=== PATIENT | male | born 1995 | race Two or more races ===

== ENCOUNTER 2024-11-08 11:32 | Inpatient (IN) | payer OTHER, SELFPAY ==
--- NOTE | 2024-11-08 | ECG_ITS ---
Test Reason : medical clearance Blood Pressure : */* mmHG Vent. Rate : 86 BPM Atrial Rate : 86 BPM P-R Int : 148 ms QRS Dur : 86 ms QT Int : 346 ms P-R-T Axes : 51 57 28 degrees QTcB Int : 414 ms Normal sinus rhythm Normal ECG No previous ECGs available Referred By: Vin Rhodes Electronically Signed By: Dennis Ojeda
--- NOTE | ~2024-11-08 | XR_ITS ---
EXAMINATION: XR FOOT, RIGHT CLINICAL INFORMATION: R fourth toe bruising/pain COMPARISON: None available. TECHNIQUE: AP, lateral, and oblique views of the right foot. FINDINGS: The bones and soft tissues are normal. No fracture. Alignment is anatomic. Joint spaces are maintained. XR/XR foot RT min 3V IMPRESSION: Normal right foot. Electronically signed by: Dakota Campbell MD 11/08/2024 12:31 PM EDT
[2024-11-08 11:41] VITALS: BP 136/89; PULSE 102; O2SAT 99
[2024-11-08 11:52] VITALS: PULSE 75; RESP 18; O2SAT 98; BMI 21.3
--- NOTE | 2024-11-08 11:53 | ED_ITS ---
HPI - General Adult General Chief complaint: Psychiatric Symptoms Stated complaint: Section 12, SI with plan, hx alcohol abuse Time Seen by Provider: 11/08/24 11:53 Source: patient Mode of arrival: ambulatory Limitations: no limitations History of Present Illness ED Provider: [place] Darden PA-C HPI narrative: Patient is a 29 year old assigned male at with a history of alcohol abuse presenting to the emergency department today with suicidal ideation. Patient states that a week ago he stopped taking his medications and he has been feeling suicidal with a plan to slit his wrists and throw himself down / off a mountain. Patient denies any dizziness, lightheadedness, abdominal pain, nausea, vomiting, fever, chills, blurry vision, double vision, loss of vision, chest pain, difficulty breathing, shortness of breath, back pain, night sweats, pain with urination, increased urinary frequency, increased urinary urgency, blood in his urine or stool, syncope or a near syncopal episode, recent trauma or falls, bowel incontinence, bladder incontinence, or any other complaints at this time. Relieving factors: none Exacerbating factors: none Associated symptoms: denies other symptoms Treatments prior to arrival: none Related Data Home Medications ?Medication ?Instructions ?Recorded ?Confirmed divalproex 250 mg tablet,extended 250 mg PO Q12H 11/08/24 11/08/24 release 24 hr gabapentin 300 mg capsule 300 mg PO BID 11/08/24 11/08/24 naltrexone 50 mg tablet 50 - 100 mg PO DAILY 11/08/24 11/08/24 sertraline 25 mg tablet 25 mg PO DAILY 11/08/24 11/08/24 Allergies Allergy/AdvReac Type Severity Reaction Status Date / Time No Known Allergies Allergy Verified 11/08/24 11:54 Review of Systems 2 Constitutional: Constitutional: Reports no additional constitutional complaints, Denies chills, Denies fever(s) and Denies night sweats Eyes: Eyes: Reports no additional eye complaints, Denies blurry vision, Denies change in vision, Denies diplopia, Denies eye discharge, Denies loss of vision and Denies eye pain ENT: Denies dizziness Cardiovascular: Cardiovascular: Reports no additional cardiovascular complaints, Denies chest pain, Denies lightheadedness, Denies Loss of Consciousness and Denies dyspnea Respiratory: Respiratory: Reports no additional respiratory complaints and Denies dyspnea Gastrointestinal: Gastrointestinal: Reports no additional gastrointestinal complaints, Denies abdominal pain, Denies melena, Denies hematochezia, Denies change in bowel habits and Denies change in stool character Genitourinary: Genitourinary: Reports no additional male genitourinary complaints, Denies hematuria, Denies oliguria, Denies difficulty urinating, Denies dysuria, Denies urinary frequency, Denies urinary hesitancy, Denies urinary incontinence and Denies urinary urgency Musculoskeletal: Musculoskeletal: Reports no additional musculoskeletal complaints, Denies numbness and Denies tingling Neurologic: Denies dizziness, Denies loss of vision, Denies numbness and Denies tingling Psychiatric: Psychiatric: Reports depression, Denies homicidal ideation and Reports suicidal ideation Endocrine: Endocrine: Reports no additional endocrine complaints Hematologic/Lymphatic: Hematologic/Lymphatic: Reports no additional hematologic/lymphatic complaints Allergic/Immunologic: Allergic/Immunologic: Reports no additional allergic/immunologic complaints PMFSH Past Medical History Attestation statement: The following information was validated with the patient. Source: old records reviewed and nursing notes reviewed Social History Social History Alcohol intake: current Alcohol intake frequency: 3 or more drinks per day Smoked in Last 30 Days: Yes Use of substances other than those prescribed or required for medical reasons: Yes Substance Use Type: Marijuana Substance Use Frequency: Occasionally Last Used Substance: Days (ago) Any prior treatment program specific to substance use: No Advance Directives: No Advance Directives Information Provided: Yes Physical Exam ED Vital Signs: Vital Signs - 24 hr 11/08/24 20:22 11/09/24 06:19 Temperature 98.8 F 98.5 F Pulse Rate 70 78 Respiratory Rate 18 17 Blood Pressure 133/70 123/73 Pulse Oximetry 99 100 Oxygen Delivery Method Room Air Room Air BMI result Body Mass Index 21.3 Const General: cooperative, no acute distress, alert and awake Nutritional Appearance: well nourished Orientation/consciousness: patient oriented x3 Limitations: no limitations HENMT Head: Yes normal to inspection and Yes atraumatic Ears: hearing grossly normal bilaterally and external ears normal General nose exam: Normal external nose present, no nasal discharge noted and no epistaxis Face and sinus: Yes normal facial exam, No abrasion and No laceration Mouth: Normal oral and palatal mucosa present, no drooling and no muffled voice Eyes General: appearance normal, both eyes and all related structures Periorbital: periorbital findings normal Eyelids: Yes eyelids normal Conjunctivae: conjunctivae normal Pupils: Equal, round and reactive pupils present EOM: EOMs intact bilaterally Neck Neck: Yes normal visual inspection, Yes full ROM and Yes no lymphadenopathy Chest Chest palpation & inspection: normal inspection of the chest Resp Effort & Inspection: normal respiratory effort and able to speak in complete sentences GI Inspection: Yes normal to inspection Neuro General: patient oriented x3, moves all extremities and CN's II-XI intact bilaterally Cranial nerves: Yes Equal, round and reactive pupils present Cognition (Neuro): normal cognition Extrem Other: bruising present to the dorsal aspect of the right toe General: Yes full ROM and Yes capillary refill normal Psych Appearance: grossly normal Mental Status: mental status grossly normal Affect: Sad affect present Attitude: Guarded attititude/behavior present and Avoids eye contact (attititude/behavior) Thought content: Suicidality present Insight: Limited insight present (Psych) Course Course Course Narrative: Time: 12:27 Date: 11/09/24 Provider: Salomón Rodney MD Patient in physician observation for psychiatric evaluation.? No acute events reported overnight. No current complaints. VS stable.?Per CARE team recommendations patient admitted as inpatient. Medications Administered Generic Name Dose Route Start Last Admin Trade Name Freq PRN Reason Stop Dose Admin Divalproex Sodium 250 mg 11/08/24 21:00 11/09/24 08:27 Divalproex Sodium Er 250 Mg Tab.Er.24h PO 250 mg BID NILA Administration Gabapentin 300 mg 11/08/24 21:00 11/09/24 08:27 Gabapentin 300 Mg Capsule PO 300 mg BID NILA Administration Naltrexone HCl 50 mg 11/09/24 09:00 11/09/24 08:27 Naltrexone Hcl 50 Mg Tablet PO 50 mg DAILY NILA Administration Sertraline HCl 25 mg 11/09/24 09:00 11/09/24 08:27 Sertraline Hcl 25 Mg Tablet PO 25 mg DAILY NILA Administration Discontinued Medications Generic Name Dose Route Start Last Admin Trade Name Freq PRN Reason Stop Dose Admin Hydroxyzine HCl 50 mg 11/08/24 20:19 11/08/24 20:22 Hydroxyzine Hcl 50 Mg Tablet PO 11/08/24 20:20 50 mg ONCE ONE Administration Ibuprofen 800 mg 11/08/24 14:27 11/08/24 14:40 Ibuprofen 800 Mg Tablet PO 11/08/24 14:28 800 mg ONCE ONE Administration Medical Decision Making Medical Decision Making [facility] Narrative: Patient is a 29 year old assigned male at with a history of alcohol abuse presenting to the emergency department today with suicidal ideation. Patient's physical exam was as noted in the physical exam portion of this note. Patient's blood work showed a mildly elevated WBC count of 14 - likely a stress reaction, as well as a valproic acid level of <12.5 which is consistent with the patient's history of not taking his medication. Patient's urine showed no acute process. Patient's right foot x-ray showed no acute process. I explained my physical exam findings as well as all test results to the patient. I answered all questions asked by the patient. Patient's disposition pending CARE team evaluation. Differential Diagnosis Differential Diagnoses: The differential diagnosis associated with the presentation includes SI Depresison Admission/Observation Consideration of admission/observation: Escalation of care including admission/observation considered Patient's disposition is pending CARE team evaluation. Lab Data [facility] Lab Attestation statement: I reviewed the patient's lab results. My interpretation of these results are in the MDM Rationale portion of this note. 11/09/24 10:45 11/08/24 12:10 Labs: Lab Results 11/08/24 11/08/24 11/08/24 Range/Units 12:09 12:10 12:33 WBC 14.0 H (4.8-10.8) X10*3/uL RBC 5.12 (4.60-5.80) X10*6/uL Hgb 14.3 (14.0-18.0) g/dl Hct 42.8 (42.0-52.0) % MCV 83.6 (80.0-98.0) fL MCH 27.9 (27.0-33.0) pg MCHC 33.4 (31.0-36.0) g/dl RDW 13.2 (11.0-16.0) % Plt Count 271 (160-400) X10*3/uL MPV 10.1 (9.4-12.4) fL Immature Gran % (Auto) 0.4 (0.0-0.4) % Neut % (Auto) 84.4 H (45-73) % Lymph % (Auto) 9.7 L (20-40) % [place] % (Auto) 5.1 (2-11) % Eos % (Auto) 0.0 (0-4) % Baso % (Auto) 0.4 (0-2) % Lymph # (Auto) 1.4 (1.2-4.9) X10*3/uL [place] # (Auto) 0.7 (0.1-1.2) X10*3/uL Eos # (Auto) 0.0 (0.0-0.4) X10*3/uL Baso # (Auto) 0.1 (0.0-0.2) X10*3/uL Abs Immat Gran (auto) 0.05 H (0.00-0.03) X10*3/uL Absolute Neuts (auto) 11.8 H (2.0-8.3) x10*3/uL Absolute Nucleated RBC 0.000 (0.0-0.012) X10*3/uL Nucleated RBC % (auto) 0.0 (0.0-0.2) /100WBC Sodium 142 (135-145) mmol/L Potassium 4.0 (3.3-5.1) mmol/L Chloride 108 (96-108) mmol/L Carbon Dioxide 27 (22-29) mmol/L Anion Gap 11 L (12-20) BUN 12 (9-16) mg/dL Creatinine 0.90 (0.5-1.4) mg/dL Estim Creat Clear Calc 107.7 Estimated GFR > 60 Random Glucose 84 (60-115) mg/dL Calcium 9.0 (8.4-10.2) mg/dL Total Bilirubin 0.7 (0.0-1.0) mg/dL AST 31 (5-37) U/L ALT 18 (0-40) U/L Alkaline Phosphatase 83 (39-117) U/L Total Protein 7.3 (6.5-8.0) g/dL Albumin 4.4 (3.5-5.0) g/dL Urine Color Yellow Urine Appearance Clear Urine pH 6.0 (5.0-9.0) Ur Specific [place] 1.020 (1.005-1.025) Urine Protein Negative (Neg-Trace) mg/dL Urine Glucose (UA) Negative (Negative) mg/dL Urine Ketones Negative (Negative) mg/dL Urine Blood Negative (Negative) Urine Nitrite Negative (Negative) Ur Leukocyte Esterase Negative (Negative) Urine Opiates Screen Not Detected (Not Detect) Ur Buprenorphine Scrn Not Detected (Not Detect) ng/mL Ur Oxycodone Screen Not Detected (Not Detect) ng/mL Urine Methadone Screen Not Detected (Not Detect) ng/mL Urine Fentanyl Screen Not Detected (Not Detect) Ur Barbiturates Screen Not Detected (Not Detect) Valproic Acid < 12.5 L (50.0-100.0) mcg/mL Ur Phencyclidine Scrn Not Detected (Not Detect) Ur Amphetamines Screen Not Detected (Not Detect) U Benzodiazepines Scrn Not Detected (Not Detect) Urine Cocaine Screen Not Detected (Not Detect) U Marijuana (THC) Screen POSITIVE H (Not Detect) Ethyl Alcohol < 10 mg/dL 11/09/24 Range/Units 10:45 WBC 7.2 (4.8-10.8) X10*3/uL RBC 5.29 (4.60-5.80) X10*6/uL Hgb 14.8 (14.0-18.0) g/dl Hct 44.5 (42.0-52.0) % MCV 84.1 (80.0-98.0) fL MCH 28.0 (27.0-33.0) pg MCHC 33.3 (31.0-36.0) g/dl RDW 13.2 (11.0-16.0) % Plt Count 265 (160-400) X10*3/uL MPV 10.1 (9.4-12.4) fL Immature Gran % (Auto) 1.0 H (0.0-0.4) % Neut % (Auto) 55.7 (45-73) % Lymph % (Auto) 32.5 (20-40) % [place] % (Auto) 8.8 (2-11) % Eos % (Auto) 1.3 (0-4) % Baso % (Auto) 0.7 (0-2) % Lymph # (Auto) 2.3 (1.2-4.9) X10*3/uL [place] # (Auto) 0.6 (0.1-1.2) X10*3/uL Eos # (Auto) 0.1 (0.0-0.4) X10*3/uL Baso # (Auto) 0.1 (0.0-0.2) X10*3/uL Abs Immat Gran (auto) 0.07 H (0.00-0.03) X10*3/uL Absolute Neuts (auto) 4.0 (2.0-8.3) x10*3/uL Absolute Nucleated RBC 0.000 (0.0-0.012) X10*3/uL Nucleated RBC % (auto) 0.0 (0.0-0.2) /100WBC Sodium (135-145) mmol/L Potassium (3.3-5.1) mmol/L Chloride (96-108) mmol/L Carbon Dioxide (22-29) mmol/L Anion Gap (12-20) BUN (9-16) mg/dL Creatinine (0.5-1.4) mg/dL Estim Creat Clear Calc Estimated GFR Random Glucose (60-115) mg/dL Calcium (8.4-10.2) mg/dL Total Bilirubin (0.0-1.0) mg/dL AST (5-37) U/L ALT (0-40) U/L Alkaline Phosphatase (39-117) U/L Total Protein (6.5-8.0) g/dL Albumin (3.5-5.0) g/dL Urine Color Urine Appearance Urine pH (5.0-9.0) Ur Specific [place] (1.005-1.025) Urine Protein (Neg-Trace) mg/dL Urine Glucose (UA) (Negative) mg/dL Urine Ketones (Negative) mg/dL Urine Blood (Negative) Urine Nitrite (Negative) Ur Leukocyte Esterase (Negative) Urine Opiates Screen (Not Detect) Ur Buprenorphine Scrn (Not Detect) ng/mL Ur Oxycodone Screen (Not Detect) ng/mL Urine Methadone Screen (Not Detect) ng/mL Urine Fentanyl Screen (Not Detect) Ur Barbiturates Screen (Not Detect) Valproic Acid (50.0-100.0) mcg/mL Ur Phencyclidine Scrn (Not Detect) Ur Amphetamines Screen (Not Detect) U Benzodiazepines Scrn (Not Detect) Urine Cocaine Screen (Not Detect) U Marijuana (THC) Screen (Not Detect) Ethyl Alcohol mg/dL Independent Historian Clinical information obtained from an independent historian. History obtained from or confirmed by: EMS (EMS provided additional history and confirmed the history provided by the patient. ) Discharge Plan Discharge Clinical Impression: Depression, Suicidal ideation, Contusion Patient Disposition: Admitted As Inpatient Interventions: Onia-Suicide Risk Severity Scale Last Done: 11/08/24 11:57 Admission Worksheet (ED) Last Done: 11/09/24 11:43
--- NOTE | 2024-11-08 12:00 | PC.NURSE ---
Luis Felipe comes to the ED today reporting suicidal ideation with a plan to slit his wrists and then jump [place]. He reports he has been having a lot of life stressors recently, struggling with dealing with family/social life. Patient also reports that he is usually on medications but has not taken any since last week. patient denies HI/AH/VH. Endorses previous inpatient stays at [facility] and [facility]. patient is calm and cooperative, very tearful during triage. Patient has hx of pseudoseizures, denies medication treatment for them. He endorses recent alcohol binge, drinking a couple drinks every day for the last 4 days, he reports that typically he only drinks on occasion. Denies drug usage besides THC Patient is on S12a
[2024-11-08 12:01] VITALS: BP 124/82; PULSE 92; RESP 16; TEMP 36.8; O2SAT 96
--- NOTE | 2024-11-08 12:06 | PC.NURSE ---
RE: med rec patient reports that he last took his medications 7 days ago, confirmed medications from previous hx
--- NOTE | 2024-11-08 12:12 | MHC.EDTECH ---
BACK PACK @ [place] PER EFD @12:13P [phone] EXT 0
[2024-11-08 12:16] LABS: MANUAL DIFF FLAG NO
[2024-11-08 12:18] LABS: Basophils Absolute Auto 0.1 X10*3/uL (0.0-0.2); Basophils Percent Auto 0.4 % (0-2); Hematocrit 42.8 % (42.0-52.0); Hemoglobin 14.3 g/dl (14.0-18.0); Imm Gran Abs Auto 0.05 X10*3/uL (0.00-0.03); Imm Gran Pct Auto 0.4 % (0.0-0.4); Lymphocytes Absolute Auto 1.4 X10*3/uL (1.2-4.9); Lymphocytes Percent Auto 9.7 % (20-40); Mean Corpuscular HGB Conc 33.4 g/dl (31.0-36.0); Mean Corpuscular Hemoglobin 27.9 pg (27.0-33.0); Mean Corpuscular Volume 83.6 fL (80.0-98.0); Mean Platelet Volume 10.1 fL (9.4-12.4); Monocytes Absolute Auto 0.7 X10*3/uL (0.1-1.2); Monocytes Percent Auto 5.1 % (2-11); Neutrophils Absolute Auto 11.8 x10*3/uL (2.0-8.3); Neutrophils Percent Auto 84.4 % (45-73); Platelet Count 271 X10*3/uL (160-400); Red Blood Count 5.12 X10*6/uL (4.60-5.80); Red Cell Distribution Width 13.2 % (11.0-16.0)
[2024-11-08 12:38] LABS: Valproate < 12.5 mcg/mL (50.0-100.0)
--- NOTE | 2024-11-08 12:38 | MHC.CARE ---
CARE Team received call from BEATING MACHINE OPERATOR/[facility] Co-response Marlen Harp reporting; Pt called ems on himself he was on [place] of [place] reporting SI? with plan to cut his wrist then roll [place] the [place]. They found bottle of vodka in his backpack. He lives in [place]?? With his ex- and 3 year old Difficult to find info, unknown to BEATING MACHINE OPERATOR. Hx of IPLOC at [facility] Hx of Vitrol . Pt will need full evaluation as he minimally engaged in intervention and may be under the influence.
[2024-11-08 12:39] LABS: Appearance Urine Clear; Color Urine Yellow; Glucose Urine UA Negative (Negative); Leukocyte Esterase Urine Negative (Negative); Nitrite Urine Negative (Negative); Urine Blood Negative (Negative); Urine Ketones Negative (Negative); Urine Protein Negative (Neg-Trace)
[2024-11-08 12:50] LABS: Amphetamine Screen Urine Not Detected (Not Detect); Barbiturates, Urine Not Detected (Not Detect); Benzodiazepines Screen Urine Not Detected (Not Detect); Buprenorphine Scr Not Detected (Not Detect); Cannabinoid Screen Urine POSITIVE (Not Detect); Cocaine Screen Urine Not Detected (Not Detect); Fentanyl, urine Not Detected (Not Detect); Methadone Screen, Urine Not Detected (Not Detect); Opiate Screen Urine Not Detected (Not Detect); Oxycodone Screen Urine Not Detected (Not Detect); Phencyclidine Screen Urine Not Detected (Not Detect)
[2024-11-08 12:52] LABS: Alanine Aminotransferase 18 U/L (0-40); Albumin Level 4.4 g/dL (3.5-5.0); Alkaline Phosphatase 83 U/L (39-117); Anion Gap 11 (12-20); Aspartate Amino Transferase 31 U/L (5-37); Bilirubin Total 0.7 mg/dL (0.0-1.0); Blood Urea Nitrogen 12 mg/dL (9-16); Carbon Dioxide 27 mmol/L (22-29); Chloride 108 mmol/L (96-108); Creatinine Clr Calc Pharmacy 107.7; Estimated Glomerular Filt Rate > 60; Ethanol < 10 mg/dL; Glucose Random 84 mg/dL (60-115); Sodium 142 mmol/L (135-145); Total Protein 7.3 g/dL (6.5-8.0)
--- NOTE | 2024-11-08 13:35 | PHA.MEDREC ---
Pharmacy Consult ? Medication Reconciliation Pharmacy has reviewed the medication reconciliation done by nursing. Utilized claims to confirm med list.
--- NOTE | 2024-11-08 13:44 | MHC.CARE ---
Pt meets the criteria for IPLOC. Section 12a in chart. Provider in agreement with disposition.
[2024-11-08] MEDS: Ibuprofen 800 MG TABLET PO (14:40)
--- NOTE | 2024-11-08 19:20 | PC.NURSE ---
Pt calm and cooperative, respectful, no issues whatsoever throughout the day today. offering no complaints to this RN
[2024-11-08 20:22] VITALS: BP 133/70; PULSE 70; RESP 18; TEMP 37.1; O2SAT 99
[2024-11-08] MEDS: Divalproex Sodium ER 250 MG TAB.ER.24H PO (20:22)
[2024-11-08] MEDS: hydrOXYzine HCL 50 MG TABLET PO (20:22)
[2024-11-08] MEDS: Gabapentin 300 MG CAPSULE PO (20:22)
[2024-11-09 06:19] VITALS: BP 123/73; PULSE 78; RESP 17; TEMP 36.9; O2SAT 100
--- NOTE | 2024-11-09 07:29 | PC.NURSE ---
Care of Pt assumed at change of shift. Pt is currently awake and eating breakfast. NAD noted at this time.
[2024-11-09] MEDS: Naltrexone HCl 50 MG TABLET PO (08:27)
[2024-11-09] MEDS: Divalproex Sodium ER 250 MG TAB.ER.24H PO ×2 (08:27→20:09)
[2024-11-09] MEDS: Gabapentin 300 MG CAPSULE PO ×2 (08:27→20:09)
[2024-11-09] MEDS: Sertraline HCL 25 MG TABLET PO (08:27)
--- NOTE | 2024-11-09 09:36 | PC.NURSE ---
Financial Counselor in pod to meet with Pt.
--- NOTE | 2024-11-09 10:13 | PC.NURSE ---
admissions calls to report Pt in need of repeat CBC blood work d/t noted elevate WBC yesterday. Orders received from MD Rodney for repeat CBC w/diff.
[2024-11-09 10:50] LABS: MANUAL DIFF FLAG NO
[2024-11-09 11:00] LABS: Basophils Absolute Auto 0.1 X10*3/uL (0.0-0.2); Basophils Percent Auto 0.7 % (0-2); Eosinophils Absolute Auto 0.1 X10*3/uL (0.0-0.4); Eosinophils Percent Auto 1.3 % (0-4); Hematocrit 44.5 % (42.0-52.0); Hemoglobin 14.8 g/dl (14.0-18.0); Imm Gran Abs Auto 0.07 X10*3/uL (0.00-0.03); Lymphocytes Absolute Auto 2.3 X10*3/uL (1.2-4.9); Lymphocytes Percent Auto 32.5 % (20-40); Mean Corpuscular HGB Conc 33.3 g/dl (31.0-36.0); Mean Corpuscular Volume 84.1 fL (80.0-98.0); Mean Platelet Volume 10.1 fL (9.4-12.4); Monocytes Absolute Auto 0.6 X10*3/uL (0.1-1.2); Monocytes Percent Auto 8.8 % (2-11); Neutrophils Percent Auto 55.7 % (45-73); Platelet Count 265 X10*3/uL (160-400); Red Blood Count 5.29 X10*6/uL (4.60-5.80); Red Cell Distribution Width 13.2 % (11.0-16.0); White Blood Count 7.2 X10*3/uL (4.8-10.8)
[2024-11-09 12:20] VITALS: BP 139/84; PULSE 76; RESP 16; TEMP 36.6; O2SAT 99
--- NOTE | 2024-11-09 12:41 | P.HPPS_ITS ---
[facility] Date of Service: 11/09/24 Chief Complaint: Crisis Sources of Information: patient interviewed, chart reviewed and crisis/core team assessment reviewed HPI Subjective Notes: Garcia Warning and Conditional Voluntary Narrative: Patient is a 29-year-old male with history of MDD, PTSD and alcohol use disorder, who was brought into ER via ambulance due to suicidal ideation secondary to life stressors. Per crisis report, patient called 911 from [place] to cut himself, bleed out and fall [place] the [place]. Patient was found sitting on a bench, tearful. Patient reported he tossed the knife and was found with alcohol in his backpack. Patient reports his filed for divorce 3 months ago and he has been struggling with the idea of losing his life and family. He also is residing in the home with his until he finds alternative housing which has been stressful. history of ongoing alcohol misuse. History of inpatient psychiatric admission at [facility] in 2021. denies SI/HI/VH/AH. Patient reports auditory hallucinations telling him to harm himself at baseline. Collateral was obtained from patient's who reports patient has no history of suicide attempts but has struggled with suicidal thoughts in the past. History of superficial cutting. Does not currently have outpatient psychiatric providers but was recently seeing a medication prescriber through [facility] health services via telehealth. During admission assessment, pt presents alert and oriented x3. Calm and cooperative. Patient reports feeling depressed; patient stated, currently getting a divorce. It brought up a lot of issues. I jm just shut down. I was listening to the voices in my head telling me that I was a loser for losing my . Patient reports that he started thinking about his kids and called 911 because he wants to be around for them . Patient reports he is not been taking his medications for the last 5 days. He denies history of SA. Patient reports he has been drinking heavily for the past few months; patient reports he drinks 4 shots of vodka and 4 mixed drinks daily. Patient currently denies withdrawal symptoms. Patient reports history of auditory hallucinations that call him names ; however he denies hearing them at this time. denies SI/HI/VH. Patient is requesting to be restarted on his medications and for a referral to out patient psychiatric providers. Past Psychiatric History: History of 1 prior psychiatric admission in 2021. Denies history of SA. History of SIB via cutting; patient reports he has not done this in over ten years. Does not currently have outpatient psychiatric providers; recently seeing a medication prescriber through [facility] services via telehealth. Medical Evaluation Reviewed: Yes [facility] Family History: Mother: Depression Social History: Lives with and 3-year-old son. has 6 y/o son who lives with mother. Works full-time at [employer] in [employer]. Some college. Substance History: Alcohol use. Patient reports he drinks 4 shots of vodka and 4 mixed drinks daily for the past few months. Trauma History: Yes Diagnostics Vital Signs (24Hr): Vital Signs - 24 hr 11/08/24 20:22 11/09/24 06:19 Temperature 98.8 F 98.5 F Pulse Rate 70 78 Respiratory Rate 18 17 Blood Pressure 133/70 123/73 Pulse Oximetry 99 100 Oxygen Delivery Method Room Air Room Air BMI result Body Mass Index 21.3 Labs 11/09/24 10:45 11/09/24 13:54 Labs: Laboratory Results - last 48 hr 11/08/24 11/08/24 11/08/24 12:09 12:10 12:33 WBC 14.0 H RBC 5.12 Hgb 14.3 Hct 42.8 MCV 83.6 MCH 27.9 MCHC 33.4 RDW 13.2 Plt Count 271 MPV 10.1 Immature Gran % (Auto) 0.4 Neut % (Auto) 84.4 H Lymph % (Auto) 9.7 L [place] % (Auto) 5.1 Eos % (Auto) 0.0 Baso % (Auto) 0.4 Lymph # (Auto) 1.4 [place] # (Auto) 0.7 Eos # (Auto) 0.0 Baso # (Auto) 0.1 Abs Immat Gran (auto) 0.05 H Absolute Neuts (auto) 11.8 H Absolute Nucleated RBC 0.000 Nucleated RBC % (auto) 0.0 Sodium 142 Potassium 4.0 Chloride 108 Carbon Dioxide 27 Anion Gap 11 L BUN 12 Creatinine 0.90 Estim Creat Clear Calc 107.7 Estimated GFR > 60 Random Glucose 84 Calcium 9.0 Total Bilirubin 0.7 AST 31 ALT 18 Alkaline Phosphatase 83 Total Protein 7.3 Albumin 4.4 Urine Color Yellow Urine Appearance Clear Urine pH 6.0 Ur Specific [place] 1.020 Urine Protein Negative Urine Glucose (UA) Negative Urine Ketones Negative Urine Blood Negative Urine Nitrite Negative Ur Leukocyte Esterase Negative Urine Opiates Screen Not Detected Ur Buprenorphine Scrn Not Detected Ur Oxycodone Screen Not Detected Urine Methadone Screen Not Detected Urine Fentanyl Screen Not Detected Ur Barbiturates Screen Not Detected Valproic Acid < 12.5 L Ur Phencyclidine Scrn Not Detected Ur Amphetamines Screen Not Detected U Benzodiazepines Scrn Not Detected Urine Cocaine Screen Not Detected U Marijuana (THC) Screen POSITIVE H Ethyl Alcohol < 10 11/09/24 10:45 WBC 7.2 RBC 5.29 Hgb 14.8 Hct 44.5 MCV 84.1 MCH 28.0 MCHC 33.3 RDW 13.2 Plt Count 265 MPV 10.1 Immature Gran % (Auto) 1.0 H Neut % (Auto) 55.7 Lymph % (Auto) 32.5 [place] % (Auto) 8.8 Eos % (Auto) 1.3 Baso % (Auto) 0.7 Lymph # (Auto) 2.3 [place] # (Auto) 0.6 Eos # (Auto) 0.1 Baso # (Auto) 0.1 Abs Immat Gran (auto) 0.07 H Absolute Neuts (auto) 4.0 Absolute Nucleated RBC 0.000 Nucleated RBC % (auto) 0.0 Sodium Potassium Chloride Carbon Dioxide Anion Gap BUN Creatinine Estim Creat Clear Calc Estimated GFR Random Glucose Calcium Total Bilirubin AST ALT Alkaline Phosphatase Total Protein Albumin Urine Color Urine Appearance Urine pH Ur Specific [place] Urine Protein Urine Glucose (UA) Urine Ketones Urine Blood Urine Nitrite Ur Leukocyte Esterase Urine Opiates Screen Ur Buprenorphine Scrn Ur Oxycodone Screen Urine Methadone Screen Urine Fentanyl Screen Ur Barbiturates Screen Valproic Acid Ur Phencyclidine Scrn Ur Amphetamines Screen U Benzodiazepines Scrn Urine Cocaine Screen U Marijuana (THC) Screen Ethyl Alcohol Imaging Radiology Impressions: ITS Impressions Foot X-Ray 11/08/24 12:20 IMPRESSION: Normal right foot. Electronically signed by: Dakota Campbell MD 11/08/2024 12:31 PM EDT Meds/Allergies Meds Home Medications ?Medication ?Instructions ?Recorded ?Confirmed ?Type divalproex 250 mg tablet,extended 250 mg PO Q12H 11/08/24 11/08/24 History release 24 hr gabapentin 300 mg capsule 300 mg PO BID 11/08/24 11/08/24 History naltrexone 50 mg tablet 50 - 100 mg PO DAILY 11/08/24 11/08/24 History sertraline 25 mg tablet 25 mg PO DAILY 11/08/24 11/08/24 History Allergies Allergies Allergy/AdvReac Type Severity Reaction Status Date / Time No Known Allergies Allergy Verified 11/08/24 11:54 Mental Status Exam Mental Status Exam Narrative: Pt is alert and oriented; behavior is cooperative and calm; dressed in casual attire; mood is described as depressed ; eye contact appropriate; Speech is normal rate, volume and not pressured; thought process is organized; Thought content is on tx; denies SI/HI/VH/AH. Assessment & Plan Assessment & Plan (1) Major depressive disorder with psychotic features: Status: Acute Code(s): F32.3 - Major depressive disorder, single episode, severe with psychotic features (2) PTSD (post-traumatic stress disorder): Status: Acute Code(s): F43.10 - Post-traumatic stress disorder, unspecified (3) Alcohol use disorder: Status: Acute Code(s): F10.90 - Alcohol use, unspecified, uncomplicated Plan Patient is a 29-year-old male with history of MDD, PTSD and alcohol use disorder, who was brought into ER via ambulance due to suicidal ideation secondary to life stressors. Plan: CV 15 minute safety checks Continue home medications Obtain collateral CIWA protocol Encourage groups Referral to outpatient psychiatric providers Discharge planning Patient educated on: diagnosis and medication risk/benefits Reason for continued inpatient stay Substantial Risk for: med/psych decompensation Statement Statement: I have reviewed the history and physical and performed a pertinent examination on my patient. No changes have occurred unless specified. If the History and Physical was not performed prior to admission, the Hospitalist's service will be consulted for completing the admission physical. Time Spent With Patient Time: Total time managing care of this patient today _60___ minutes.
[2024-11-09 13:15] VITALS: BMI 21.7
[2024-11-09 14:20] LABS: Alanine Aminotransferase 20 U/L (0-40); Albumin Level 4.5 g/dL (3.5-5.0); Alkaline Phosphatase 84 U/L (39-117); Anion Gap 12 (12-20); Aspartate Amino Transferase 30 U/L (5-37); Blood Urea Nitrogen 17 mg/dL (9-16); Calcium 9.3 mg/dL (8.4-10.2); Carbon Dioxide 27 mmol/L (22-29); Chloride 106 mmol/L (96-108); Creatinine Clr Calc Pharmacy 116.4; Estimated Glomerular Filt Rate > 60; Glucose Random 90 mg/dL (60-115); Potassium 4.1 mmol/L (3.3-5.1); Sodium 141 mmol/L (135-145); Total Protein 7.4 g/dL (6.5-8.0)
[2024-11-09 16:26] VITALS: BP 116/71; PULSE 77; RESP 16; TEMP 37.1
--- NOTE | 2024-11-09 17:02 | PC.ADMIT ---
Nursing admission note: 29 year old male DX: Unspecified depressive disorder. Referred for treatment by CARE team. Signed conditional voluntary for admission, followed by three day note. Patient was brought in by ambulance secondary to being found on [place] at [facility] endorsing SI. Patient called 911 [place] and planned to cut himself, bleed out, and fall down the mountain. Patient engaged easily. Calm and cooperative with admission process. Presented in hospital attire, good eye contact, good attn to ADL. Reports feeling anxious, depressed, denies SI/HI plan or intent at this time. States his son contributes to not acting on ideation. Reports +AH, sometimes they tell me to hurt myself, other times they try to help . Thoughts are linear and organized. Denies racing thought, confusion or distractibility. Speech normal rate, tone, prosody. Denies sleep or appetite disturbances. Recent stressor includes filing for divorce. TOX screen positive for THC. Reports daily use of alcohol for last two weeks, 4 shots, and 4 mixed drinks . Last use Wednesday. Denies alcohol withdrawal seizure. No withdrawal sx at this time. Medical history includes pseudo seizure most recent reported to be 1 month ago. Denies legal entanglements. Patient oriented to unit, placed on CIWA protocol. Placed on q 15 minute safety checks. See nursing assessment, crisis evaluation for further details.
[2024-11-09 20:00] VITALS: BP 136/80; PULSE 72; RESP 14; TEMP 36.7; O2SAT 100
[2024-11-10] MEDS: Acetaminophen 325 MG TABLET 650 MG PO (06:27)
[2024-11-10 07:10] VITALS: BP 132/73; PULSE 72; RESP 16; TEMP 36.6; O2SAT 99
[2024-11-10] MEDS: Sertraline HCL 25 MG TABLET PO (08:34)
[2024-11-10] MEDS: Thiamine HCL 100 MG TABLET PO (08:34)
[2024-11-10] MEDS: Gabapentin 300 MG CAPSULE PO ×2 (08:34→21:14)
[2024-11-10] MEDS: Divalproex Sodium ER 250 MG TAB.ER.24H PO ×2 (08:34→21:14)
[2024-11-10] MEDS: Naltrexone HCl 50 MG TABLET PO (08:34)
[2024-11-10 08:44] LABS: Estimated Average Glucose 97 mg/dL; Hemoglobin A1C 121.7588 umol/L; Total Hemoglobin (HGBA1C) 3950.9875 umol/L
[2024-11-10 08:49] LABS: Cholesterol 133 mg/dL (<200); HDL Cholesterol 48 mg/dL (>40); LDL Cholesterol Calculated 68 mg/dL (<100); Triglycerides 85 mg/dL (<150)
--- NOTE | 2024-11-10 10:14 | P.PNPSI_ITS ---
Subjective Subjective Date of Service: 11/10/24 Reason For Visit: Crisis Subjective Notes: 3 Day Interim History: Active on unit. social with peers. attending groups. Patient reports feeling better with the medications ; pt stated, I'm still have some depression and voices but I'm trying to be positive . denies SI/HI/VH. per nursing slept 8 hours. Start: Zyprexa 5mg PO bedtime. Medication Compliance: Yes Side effects from medications: No Attending Groups: Yes Mental Status Exam Mental Status Exam Narrative: Pt is alert and oriented; behavior is cooperative and calm; dressed in casual attire; mood is described as better ; eye contact appropriate; Speech is normal rate, volume and not pressured; thought process is organized; Thought content is on tx; denies SI/HI/VH. +AH Diagnostics Vital Signs (24Hr): Vital Signs - 24 hr 11/09/24 12:20 11/09/24 16:26 11/09/24 20:00 Temperature 97.8 F 98.7 F 98.0 F Pulse Rate 76 77 72 Respiratory Rate 16 16 14 Blood Pressure 139/84 116/71 136/80 Pulse Oximetry 99 100 Oxygen Delivery Method Room Air Room Air 11/10/24 07:10 Temperature 97.8 F Pulse Rate 72 Respiratory Rate 16 Blood Pressure 132/73 Pulse Oximetry 99 Oxygen Delivery Method Room Air BMI result Body Mass Index 21.7 Labs 11/09/24 10:45 11/09/24 13:54 Labs: Laboratory Results - last 48 hr 11/08/24 11/08/24 11/08/24 12:09 12:10 12:33 WBC 14.0 H RBC 5.12 Hgb 14.3 Hct 42.8 MCV 83.6 MCH 27.9 MCHC 33.4 RDW 13.2 Plt Count 271 MPV 10.1 Immature Gran % (Auto) 0.4 Neut % (Auto) 84.4 H Lymph % (Auto) 9.7 L [place] % (Auto) 5.1 Eos % (Auto) 0.0 Baso % (Auto) 0.4 Lymph # (Auto) 1.4 [place] # (Auto) 0.7 Eos # (Auto) 0.0 Baso # (Auto) 0.1 Abs Immat Gran (auto) 0.05 H Absolute Neuts (auto) 11.8 H Absolute Nucleated RBC 0.000 Nucleated RBC % (auto) 0.0 Sodium 142 Potassium 4.0 Chloride 108 Carbon Dioxide 27 Anion Gap 11 L BUN 12 Creatinine 0.90 Estim Creat Clear Calc 107.7 Estimated GFR > 60 Random Glucose 84 Estimat Average Glucose Hemoglobin A1c % Calcium 9.0 Total Bilirubin 0.7 AST 31 ALT 18 Alkaline Phosphatase 83 Total Protein 7.3 Albumin 4.4 Triglycerides Cholesterol LDL Cholesterol, Calc HDL Cholesterol Urine Color Yellow Urine Appearance Clear Urine pH 6.0 Ur Specific [place] 1.020 Urine Protein Negative Urine Glucose (UA) Negative Urine Ketones Negative Urine Blood Negative Urine Nitrite Negative Ur Leukocyte Esterase Negative Urine Opiates Screen Not Detected Ur Buprenorphine Scrn Not Detected Ur Oxycodone Screen Not Detected Urine Methadone Screen Not Detected Urine Fentanyl Screen Not Detected Ur Barbiturates Screen Not Detected Valproic Acid < 12.5 L Ur Phencyclidine Scrn Not Detected Ur Amphetamines Screen Not Detected U Benzodiazepines Scrn Not Detected Urine Cocaine Screen Not Detected U Marijuana (THC) Screen POSITIVE H Ethyl Alcohol < 10 11/09/24 11/09/24 11/10/24 10:45 13:54 07:56 WBC 7.2 RBC 5.29 Hgb 14.8 Hct 44.5 MCV 84.1 MCH 28.0 MCHC 33.3 RDW 13.2 Plt Count 265 MPV 10.1 Immature Gran % (Auto) 1.0 H Neut % (Auto) 55.7 Lymph % (Auto) 32.5 [place] % (Auto) 8.8 Eos % (Auto) 1.3 Baso % (Auto) 0.7 Lymph # (Auto) 2.3 [place] # (Auto) 0.6 Eos # (Auto) 0.1 Baso # (Auto) 0.1 Abs Immat Gran (auto) 0.07 H Absolute Neuts (auto) 4.0 Absolute Nucleated RBC 0.000 Nucleated RBC % (auto) 0.0 Sodium 141 Potassium 4.1 Chloride 106 Carbon Dioxide 27 Anion Gap 12 BUN 17 H Creatinine 0.85 Estim Creat Clear Calc 116.4 Estimated GFR > 60 Random Glucose 90 Estimat Average Glucose 97 Hemoglobin A1c % 5.0 Calcium 9.3 Total Bilirubin 1.0 AST 30 ALT 20 Alkaline Phosphatase 84 Total Protein 7.4 Albumin 4.5 Triglycerides 85 Cholesterol 133 LDL Cholesterol, Calc 68 HDL Cholesterol 48 Urine Color Urine Appearance Urine pH Ur Specific [place] Urine Protein Urine Glucose (UA) Urine Ketones Urine Blood Urine Nitrite Ur Leukocyte Esterase Urine Opiates Screen Ur Buprenorphine Scrn Ur Oxycodone Screen Urine Methadone Screen Urine Fentanyl Screen Ur Barbiturates Screen Valproic Acid Ur Phencyclidine Scrn Ur Amphetamines Screen U Benzodiazepines Scrn Urine Cocaine Screen U Marijuana (THC) Screen Ethyl Alcohol Imaging Radiology Impressions: ITS Impressions Foot X-Ray 11/08/24 12:20 IMPRESSION: Normal right foot. Electronically signed by: Dakota Campbell MD 11/08/2024 12:31 PM EDT RP Medications Medications Current Medications Acetaminophen (Acetaminophen 325 Mg Tablet) 650 mg PO Q6H PRN PRN Reason: Headache/Pain, Scale 1-10 Last Admin: 11/10/24 06:27 Dose: 650 mg Al Hydroxide/Mg Hydroxide (Magnesium Hydrox/Alum Hydrox 30 Ml Oral.Susp) 30 ml PO Q6H PRN PRN Reason: Heartburn/Nausea Divalproex Sodium (Divalproex Sodium Er 250 Mg Tab.Er.24h) 250 mg PO BID [facility] Last Admin: 11/10/24 08:34 Dose: 250 mg Gabapentin (Gabapentin 300 Mg Capsule) 300 mg PO BID [facility] Last Admin: 11/10/24 08:34 Dose: 300 mg Hydroxyzine HCl (Hydroxyzine Hcl 25 Mg Tablet) 25 mg PO Q6H PRN PRN Reason: mild anxiety Lorazepam (Lorazepam 1 Mg Tablet) 1 mg PO Q2H PRN PRN Reason: CIWA 8-11 Lorazepam (Lorazepam 1 Mg Tablet) 2 mg PO Q2H PRN PRN Reason: CIWA 12-15 Lorazepam (Lorazepam 1 Mg Tablet) 3 mg PO Q2H PRN PRN Reason: CIWA > 15, and call Magnesium Hydroxide (Milk Of Magnesia 30 Ml Oral.Susp) 30 ml PO DAILY PRN PRN Reason: Constipation Naltrexone HCl (Naltrexone Hcl 50 Mg Tablet) 50 mg PO DAILY [facility] Last Admin: 11/10/24 08:34 Dose: 50 mg Nicotine Polacrilex (Nicotine Polacrilex 2 Mg Gum) 4 mg BUCCAL Q2H PRN PRN Reason: Nicotine Cravings Olanzapine (Olanzapine 5 Mg Tablet) 5 mg PO Q4H PRN PRN Reason: psychosis/agitation Sertraline HCl (Sertraline Hcl 25 Mg Tablet) 25 mg PO DAILY [facility] Last Admin: 04/11/25 08:34 Dose: 25 mg Thiamine HCl (Thiamine Hcl 100 Mg Tablet) 100 mg PO DAILY [facility] Last Admin: 11/10/24 08:34 Dose: 100 mg Trazodone HCl (Trazodone Hcl 50 Mg Tablet) 50 mg PO BEDTIME MRX1 PRN PRN Reason: Insomnia Allergies Allergies Allergy/AdvReac Type Severity Reaction Status Date / Time No Known Allergies Allergy Verified 11/08/24 11:54 Assessment & Plan Assessment & Plan (1) Major depressive disorder with psychotic features: Status: Acute Code(s): F32.3 - Major depressive disorder, single episode, severe with psychotic features (2) PTSD (post-traumatic stress disorder): Status: Acute Code(s): F43.10 - Post-traumatic stress disorder, unspecified (3) Alcohol use disorder: Status: Acute Code(s): F10.90 - Alcohol use, unspecified, uncomplicated Plan Patient is a 29-year-old male with history of MDD, PTSD and alcohol use disorder, who was brought into ER via ambulance due to suicidal ideation secondary to life stressors. Plan: CV 15 minute safety checks Continue home medications Obtain collateral CIWA protocol Encourage groups Referral to outpatient psychiatric providers Discharge planning 11/10: Active on unit. social with peers. attending groups. Patient reports feeling better with the medications ; pt stated, I'm still have some depression and voices but I'm trying to be positive . denies SI/HI/VH. per nursing slept 8 hours. Start: Zyprexa 5mg PO bedtime. Patient educated on: diagnosis and medication risk/benefits Reason for continued inpatient stay Substantial Risk for: med/psych decompensation Time Spent With Patient Time: Total time managing care of this patient today _20___ minutes.
[2024-11-10] MEDS: OLANZapine 5 MG TABLET PO ×2 (10:25→21:14)
[2024-11-10 12:26] VITALS: BP 134/81; PULSE 76; RESP 16; TEMP 36.4; O2SAT 100
--- NOTE | 2024-11-10 16:11 | MHC.RECOVRN ---
AUDIT-C Brief Intervention Pt had positive screen for unhealthy alcohol use on admission, subsequently met with t/w to discuss alcohol use and recovery supports/options. This sba underwriter met with patient to discuss current alcohol use and concerns related to increased risk of alcohol related problems. Pt reports 4 shots plus 4 mixed vodka drinks x 2 weeks [employer]. Discussed how alcohol use has impacted health, including negative impact on mental health. Withdrawal History: denies hx withdrawal seizures Treatment History: denies history of treatment, however, is prescribed naltrexone through psychiatrist Supports: , mom, therapist Discussed risk reduction strategies including drinking below the recommended limit. Provided pt with written resources including information on inpatient and outpatient treatment, KAL, harm reduction, and recovery coaching. Pt plans to continue taking naltrexone and review resources provided. Pt provided with t/w contact information if questions or concerns arise. Denies other questions or concerns at this time.
[2024-11-10 16:41] VITALS: BP 110/66; PULSE 75; RESP 16; TEMP 36.2; O2SAT 100
[2024-11-10 20:01] VITALS: BP 111/73; PULSE 62; RESP 16; TEMP 36.8; O2SAT 98
[2024-11-11 07:15] VITALS: BP 132/69; PULSE 80; RESP 16; TEMP 36.4; O2SAT 99
[2024-11-11] MEDS: Gabapentin 300 MG CAPSULE PO ×2 (08:57→21:14)
[2024-11-11] MEDS: Naltrexone HCl 50 MG TABLET PO (08:58)
[2024-11-11] MEDS: Divalproex Sodium ER 250 MG TAB.ER.24H PO ×2 (08:58→21:14)
[2024-11-11] MEDS: Thiamine HCL 100 MG TABLET PO (08:58)
[2024-11-11] MEDS: Sertraline HCL 25 MG TABLET PO (08:58)
[2024-11-11] MEDS: Acetaminophen 325 MG TABLET 650 MG PO (09:27)
--- NOTE | 2024-11-11 16:50 | P.PNPSI_ITS ---
Subjective Subjective Date of Service: 11/11/24 Reason For Visit: Crisis Interim History: calm, cooperative, pleasant. feeling helped by meds. slept well, good appetite. olanzapine helpful. last drink about 5 days ago. per staff, 3-day up 11/14. attending groups. fall risk for GUCCI. zyprexa helpful. slept about 9 hours. Mental Status Exam Mental Status Exam Narrative: Pt is alert and oriented; behavior is cooperative and calm; dressed in casual attire; mood is described as better ; eye contact appropriate; Speech is normal rate, volume and not pressured; thought process is organized; Thought content is on tx; denies SI/HI/AVH. Diagnostics Vital Signs (24Hr): Vital Signs - 24 hr 11/10/24 20:01 11/11/24 07:15 Temperature 98.2 F 97.5 F Pulse Rate 62 80 Respiratory Rate 16 16 Blood Pressure 111/73 132/69 Pulse Oximetry 98 99 Oxygen Delivery Method Room Air Room Air BMI result Body Mass Index 21.7 Labs 11/09/24 10:45 11/09/24 13:54 Labs: Laboratory Results - last 48 hr 11/10/24 07:56 Estimat Average Glucose 97 Hemoglobin A1c % 5.0 Triglycerides 85 Cholesterol 133 LDL Cholesterol, Calc 68 HDL Cholesterol 48 Imaging Radiology Impressions: ITS Impressions Foot X-Ray 11/08/24 12:20 IMPRESSION: Normal right foot. Electronically signed by: Dakota Campbell MD 11/08/2024 12:31 PM EDT RP Medications Medications Current Medications Acetaminophen (Acetaminophen 325 Mg Tablet) 650 mg PO Q6H PRN PRN Reason: Headache/Pain, Scale 1-10 Last Admin: 11/11/24 09:27 Dose: 650 mg Al Hydroxide/Mg Hydroxide (Magnesium Hydrox/Alum Hydrox 30 Ml Oral.Susp) 30 ml PO Q6H PRN PRN Reason: Heartburn/Nausea Divalproex Sodium (Divalproex Sodium Er 250 Mg Tab.Er.24h) 250 mg PO BID [facility] Last Admin: 11/11/24 08:58 Dose: 250 mg Gabapentin (Gabapentin 300 Mg Capsule) 300 mg PO BID [facility] Last Admin: 11/11/24 08:57 Dose: 300 mg Hydroxyzine HCl (Hydroxyzine Hcl 25 Mg Tablet) 25 mg PO Q6H PRN PRN Reason: mild anxiety Lorazepam (Lorazepam 1 Mg Tablet) 1 mg PO Q2H PRN PRN Reason: CIWA 8-11 Lorazepam (Lorazepam 1 Mg Tablet) 2 mg PO Q2H PRN PRN Reason: CIWA 12-15 Lorazepam (Lorazepam 1 Mg Tablet) 3 mg PO Q2H PRN PRN Reason: CIWA > 15, and call Magnesium Hydroxide (Milk Of Magnesia 30 Ml Oral.Susp) 30 ml PO DAILY PRN PRN Reason: Constipation Naltrexone HCl (Naltrexone Hcl 50 Mg Tablet) 50 mg PO DAILY [facility] Last Admin: 11/11/24 08:58 Dose: 50 mg Nicotine Polacrilex (Nicotine Polacrilex 2 Mg Gum) 4 mg BUCCAL Q2H PRN PRN Reason: Nicotine Cravings Olanzapine (Olanzapine 5 Mg Tablet) 5 mg PO Q4H PRN PRN Reason: psychosis/agitation Last Admin: 11/10/24 10:25 Dose: 5 mg Olanzapine (Olanzapine 5 Mg Tablet) 5 mg PO BEDTIME [facility] Last Admin: 11/10/24 21:14 Dose: 5 mg Sertraline HCl (Sertraline Hcl 25 Mg Tablet) 25 mg PO DAILY [facility] Last Admin: 11/11/24 08:58 Dose: 25 mg Thiamine HCl (Thiamine Hcl 100 Mg Tablet) 100 mg PO DAILY [facility] Last Admin: 11/11/24 08:58 Dose: 100 mg Trazodone HCl (Trazodone Hcl 50 Mg Tablet) 50 mg PO BEDTIME MRX1 PRN PRN Reason: Insomnia Allergies Allergies Allergy/AdvReac Type Severity Reaction Status Date / Time No Known Allergies Allergy Verified 11/08/24 11:54 Assessment & Plan Assessment & Plan (1) Major depressive disorder with psychotic features: Status: Acute Code(s): F32.3 - Major depressive disorder, single episode, severe with psychotic features (2) PTSD (post-traumatic stress disorder): Status: Acute Code(s): F43.10 - Post-traumatic stress disorder, unspecified (3) Alcohol use disorder: Status: Acute Code(s): F10.90 - Alcohol use, unspecified, uncomplicated Plan Patient is a 29-year-old male with history of MDD, PTSD and alcohol use disorder, who was brought into ER via ambulance due to suicidal ideation secondary to life stressors. Plan: CV 15 minute safety checks Continue home medications Obtain collateral CIWA protocol Encourage groups Referral to outpatient psychiatric providers Discharge planning 11/10: Active on unit. social with peers. attending groups. Patient reports feeling better with the medications ; pt stated, I'm still have some depression and voices but I'm trying to be positive . denies SI/HI/VH. per nursing slept 8 hours. Start: Zyprexa 5mg PO bedtime. 11/11: continues appearing well, feeling better. AH helped by olanzapine. continue current mgmt. Reason for continued inpatient stay Substantial Risk for: harm to self, inability to function and rapid decompensation Time Spent With Patient Time: Total time managing care of this patient today ____ minutes.
[2024-11-11 18:45] VITALS: BP 131/82; PULSE 85; RESP 16; TEMP 37.1; O2SAT 99
[2024-11-11] MEDS: OLANZapine 5 MG TABLET PO (21:14)
[2024-11-12 07:37] VITALS: BP 128/75; PULSE 75; RESP 16; TEMP 37; O2SAT 100
[2024-11-12] MEDS: Divalproex Sodium ER 250 MG TAB.ER.24H PO (08:30)
[2024-11-12] MEDS: Naltrexone HCl 50 MG TABLET PO (08:30)
[2024-11-12] MEDS: Gabapentin 300 MG CAPSULE PO ×2 (08:30→20:38)
[2024-11-12] MEDS: Thiamine HCL 100 MG TABLET PO (08:30)
[2024-11-12] MEDS: Sertraline HCL 25 MG TABLET PO (08:31)
[2024-11-12] MEDS: OLANZapine 5 MG TABLET PO ×2 (09:05→20:39)
[2024-11-12 20:00] VITALS: BP 137/75; PULSE 79; RESP 16; TEMP 36.9; O2SAT 100
[2024-11-12] MEDS: Divalproex Sodium ER 500 MG TAB.ER.24H PO (20:38)
--- NOTE | 2024-11-12 20:39 | P.PNPSI_ITS ---
Subjective Subjective Date of Service: 11/12/24 Reason For Visit: Crisis Interim History: doing well. CIWA DCed as pt not scoring. works nights. agreeable to have VPA consolidated into once daily dosing. per staff, 3-day notice up 11/14. anx 2 dep 4. feeling sedated from meds. slept 9 hours. attending groups. Mental Status Exam Mental Status Exam Narrative: Pt is alert and oriented; behavior is cooperative and calm; dressed in casual attire; mood is described as better ; eye contact appropriate; Speech is normal rate, volume and not pressured; thought process is organized; Thought content is on tx; denies SI/HI/AVH. Diagnostics Vital Signs (24Hr): Vital Signs - 24 hr 11/12/24 07:37 Temperature 98.6 F Pulse Rate 75 Respiratory Rate 16 Blood Pressure 128/75 Pulse Oximetry 100 Oxygen Delivery Method Room Air BMI result Body Mass Index 21.7 Labs 11/09/24 10:45 11/09/24 13:54 Imaging Radiology Impressions: ITS Impressions Foot X-Ray 11/08/24 12:20 IMPRESSION: Normal right foot. Electronically signed by: Dakota Campbell MD 11/08/2024 12:31 PM EDT Medications Medications Current Medications Acetaminophen (Acetaminophen 325 Mg Tablet) 650 mg PO Q6H PRN PRN Reason: Headache/Pain, Scale 1-10 Last Admin: 11/11/24 09:27 Dose: 650 mg Al Hydroxide/Mg Hydroxide (Magnesium Hydrox/Alum Hydrox 30 Ml Oral.Susp) 30 ml PO Q6H PRN PRN Reason: Heartburn/Nausea Divalproex Sodium (Divalproex Sodium Er 500 Mg Tab.Er.24h) 500 mg PO BEDTIME NILA Gabapentin (Gabapentin 300 Mg Capsule) 300 mg PO BID [facility] Last Admin: 11/12/24 08:30 Dose: 300 mg Hydroxyzine HCl (Hydroxyzine Hcl 25 Mg Tablet) 25 mg PO Q6H PRN PRN Reason: mild anxiety Magnesium Hydroxide (Milk Of Magnesia 30 Ml Oral.Susp) 30 ml PO DAILY PRN PRN Reason: Constipation Naltrexone HCl (Naltrexone Hcl 50 Mg Tablet) 50 mg PO DAILY [facility] Last Admin: 11/12/24 08:30 Dose: 50 mg Nicotine Polacrilex (Nicotine Polacrilex 2 Mg Gum) 4 mg BUCCAL Q2H PRN PRN Reason: Nicotine Cravings Olanzapine (Olanzapine 5 Mg Tablet) 5 mg PO Q4H PRN PRN Reason: psychosis/agitation Last Admin: 11/12/24 09:05 Dose: 5 mg Olanzapine (Olanzapine 5 Mg Tablet) 5 mg PO BEDTIME [facility] Last Admin: 11/11/24 21:14 Dose: 5 mg Sertraline HCl (Sertraline Hcl 25 Mg Tablet) 25 mg PO DAILY [facility] Last Admin: 11/12/24 08:31 Dose: 25 mg Trazodone HCl (Trazodone Hcl 50 Mg Tablet) 50 mg PO BEDTIME MRX1 PRN PRN Reason: Insomnia Allergies Allergies Allergy/AdvReac Type Severity Reaction Status Date / Time No Known Allergies Allergy Verified 11/08/24 11:54 Assessment & Plan Assessment & Plan (1) Major depressive disorder with psychotic features: Status: Acute Code(s): F32.3 - Major depressive disorder, single episode, severe with psychotic features (2) PTSD (post-traumatic stress disorder): Status: Acute Code(s): F43.10 - Post-traumatic stress disorder, unspecified (3) Alcohol use disorder: Status: Acute Code(s): F10.90 - Alcohol use, unspecified, uncomplicated Plan Patient is a 29-year-old male with history of MDD, PTSD and alcohol use disorder, who was brought into ER via ambulance due to suicidal ideation secondary to life stressors. Plan: CV 15 minute safety checks Continue home medications Obtain collateral CIWA protocol Encourage groups Referral to outpatient psychiatric providers Discharge planning 11/10: Active on unit. social with peers. attending groups. Patient reports feeling better with the medications ; pt stated, I'm still have some depression and voices but I'm trying to be positive . denies SI/HI/VH. per nursing slept 8 hours. Start: Zyprexa 5mg PO bedtime. 11/11: continues appearing well, feeling better. AH helped by olanzapine. continue current mgmt. 11/12: consolidate VPA into single dose daily. feeling improved, looking forward to discharge. 3-day up wednesday. Reason for continued inpatient stay Substantial Risk for: inability to function Time Spent With Patient Time: Total time managing care of this patient today ____ minutes.
[2024-11-13 07:20] VITALS: BP 143/82; PULSE 71; RESP 16; TEMP 36.4; O2SAT 100
[2024-11-13] MEDS: Sertraline HCL 25 MG TABLET PO (08:29)
[2024-11-13] MEDS: Naltrexone HCl 50 MG TABLET PO (08:29)
[2024-11-13] MEDS: Gabapentin 300 MG CAPSULE PO ×2 (08:29→20:31)
--- NOTE | 2024-11-13 09:46 | P.PNPSI_ITS ---
Subjective Subjective Date of Service: 11/13/24 Reason For Visit: Crisis Subjective Notes: 3 Day Interim History: Active on unit. social with peers. attending groups. 3 day up on 11/14/24. Patient reports feeling good ; pt stated, the vocies are almost gone. I'm feeling a lot better . denies SI/HI/VH/AH. per nursing, slept 8 hours. Pt reports he plans on following up with his outpatient providers. Medication Compliance: Yes Side effects from medications: No Attending Groups: Yes Mental Status Exam Mental Status Exam Narrative: Pt is alert and oriented; behavior is cooperative and calm; dressed in casual attire; mood is described as good ; eye contact appropriate; Speech is normal rate, volume and not pressured; thought process is organized; Thought content is on tx; denies SI/HI/AVH. Diagnostics Vital Signs (24Hr): Vital Signs - 24 hr 11/12/24 20:00 11/13/24 07:20 Temperature 98.4 F 97.6 F Pulse Rate 79 71 Respiratory Rate 16 16 Blood Pressure 137/75 143/82 H Pulse Oximetry 100 100 Oxygen Delivery Method Room Air Room Air BMI result Body Mass Index 21.7 Labs 11/09/24 10:45 11/09/24 13:54 Imaging Radiology Impressions: ITS Impressions Foot X-Ray 11/08/24 12:20 IMPRESSION: Normal right foot. Electronically signed by: Dakota Campbell MD 11/08/2024 12:31 PM EDT RP Medications Medications Current Medications Acetaminophen (Acetaminophen 325 Mg Tablet) 650 mg PO Q6H PRN PRN Reason: Headache/Pain, Scale 1-10 Last Admin: 11/11/24 09:27 Dose: 650 mg Al Hydroxide/Mg Hydroxide (Magnesium Hydrox/Alum Hydrox 30 Ml Oral.Susp) 30 ml PO Q6H PRN PRN Reason: Heartburn/Nausea Divalproex Sodium (Divalproex Sodium Er 500 Mg Tab.Er.24h) 500 mg PO BEDTIME [facility] Last Admin: 11/12/24 20:38 Dose: 500 mg Gabapentin (Gabapentin 300 Mg Capsule) 300 mg PO BID [facility] Last Admin: 11/13/24 08:29 Dose: 300 mg Hydroxyzine HCl (Hydroxyzine Hcl 25 Mg Tablet) 25 mg PO Q6H PRN PRN Reason: mild anxiety Magnesium Hydroxide (Milk Of Magnesia 30 Ml Oral.Susp) 30 ml PO DAILY PRN PRN Reason: Constipation Naltrexone HCl (Naltrexone Hcl 50 Mg Tablet) 50 mg PO DAILY [facility] Last Admin: 11/13/24 08:29 Dose: 50 mg Nicotine Polacrilex (Nicotine Polacrilex 2 Mg Gum) 4 mg BUCCAL Q2H PRN PRN Reason: Nicotine Cravings Olanzapine (Olanzapine 5 Mg Tablet) 5 mg PO Q4H PRN PRN Reason: psychosis/agitation Last Admin: 11/12/24 09:05 Dose: 5 mg Olanzapine (Olanzapine 5 Mg Tablet) 5 mg PO BEDTIME [facility] Last Admin: 11/12/24 20:39 Dose: 5 mg Sertraline HCl (Sertraline Hcl 25 Mg Tablet) 25 mg PO DAILY [facility] Last Admin: 11/13/24 08:29 Dose: 25 mg Trazodone HCl (Trazodone Hcl 50 Mg Tablet) 50 mg PO BEDTIME MRX1 PRN PRN Reason: Insomnia Allergies Allergies Allergy/AdvReac Type Severity Reaction Status Date / Time No Known Allergies Allergy Verified 11/08/24 11:54 Assessment & Plan Assessment & Plan (1) Major depressive disorder with psychotic features: Status: Acute Code(s): F32.3 - Major depressive disorder, single episode, severe with psychotic features (2) PTSD (post-traumatic stress disorder): Status: Acute Code(s): F43.10 - Post-traumatic stress disorder, unspecified (3) Alcohol use disorder: Status: Acute Code(s): F10.90 - Alcohol use, unspecified, uncomplicated Plan Patient is a 29-year-old male with history of MDD, PTSD and alcohol use disorder, who was brought into ER via ambulance due to suicidal ideation secondary to life stressors. Plan: CV 15 minute safety checks Continue home medications Obtain collateral CIWA protocol Encourage groups Referral to outpatient psychiatric providers Discharge planning 11/10: Active on unit. social with peers. attending groups. Patient reports feeling better with the medications ; pt stated, I'm still have some depression and voices but I'm trying to be positive . denies SI/HI/VH. per nursing slept 8 hours. Start: Zyprexa 5mg PO bedtime. 11/11: continues appearing well, feeling better. AH helped by olanzapine. continue current mgmt. 11/12: consolidate VPA into single dose daily. feeling improved, looking forward to discharge. 3-day up wednesday. 11/13: Active on unit. social with peers. attending groups. 3 day up on 11/14/24. Patient reports feeling good ; pt stated, the vocies are almost gone. I'm feeling a lot better . denies SI/HI/VH/AH. per nursing, slept 8 hours. Pt reports he plans on following up with his outpatient providers. Patient educated on: diagnosis and medication risk/benefits Reason for continued inpatient stay Substantial Risk for: stable for discharge Time Spent With Patient Time: Total time managing care of this patient today _20___ minutes.
[2024-11-13 12:22] LABS: Ammonia 53 umol/L (13-55)
[2024-11-13 12:31] LABS: Alanine Aminotransferase 20 U/L (0-40); Albumin Level 4.7 g/dL (3.5-5.0); Aspartate Amino Transferase 22 U/L (5-37); Bilirubin Direct 0.1 mg/dL (0.0-0.5); Bilirubin Total 0.5 mg/dL (0.0-1.0); Total Protein 7.9 g/dL (6.5-8.0)
[2024-11-13 12:33] LABS: Alkaline Phosphatase 84 U/L (39-117)
[2024-11-13] MEDS: Milk of Magnesia 30 ML ORAL.SUSP PO (13:51)
[2024-11-13] MEDS: hydrOXYzine HCL 25 MG TABLET PO (17:17)
[2024-11-13 20:00] VITALS: BP 120/72; PULSE 112; RESP 16; TEMP 37.1; O2SAT 98
[2024-11-13] MEDS: Divalproex Sodium ER 500 MG TAB.ER.24H PO (20:30)
[2024-11-13] MEDS: OLANZapine 5 MG TABLET PO (20:32)
[2024-11-14 07:30] VITALS: BP 123/95; PULSE 83; RESP 18; TEMP 36.5; O2SAT 99
[2024-11-14] MEDS: Naltrexone HCl 50 MG TABLET PO (08:32)
[2024-11-14] MEDS: Sertraline HCL 25 MG TABLET PO (08:33)
[2024-11-14] MEDS: Gabapentin 300 MG CAPSULE PO (08:33)
--- NOTE | 2024-11-14 08:34 | PM.PSYDC ---
DS: Providers Provider Date of Service: 11/14/24 Date of admission: 11/09/24 11:07 Date of discharge: 11/14/24 Primary care physician: Unknown Physician Admitting clinician: Susan Fagan Attending physician on admission: Madi Krishnamurthy Consults: 11/09/24 15:14 Addiction Medicine Provider Routine Consulting Provider: Addiction Covering Reason for consultation: met criteria Attending physician on discharge: Madi Krishnamurthy Discharging clinician: Susan Fagan DS: Diagnosis Discharge Diagnosis (1) Major depressive disorder with psychotic features: Status: Acute (2) PTSD (post-traumatic stress disorder): Status: Acute (3) Alcohol use disorder: Status: Acute DS: Medications Discharge Medications Home Medications: Home Medications ?Medication ?Instructions ?Recorded ?Confirmed gabapentin 300 mg capsule 300 mg PO BID 11/08/24 11/08/24 naltrexone 50 mg tablet 50 - 100 mg PO DAILY 11/08/24 11/08/24 sertraline 25 mg tablet 25 mg PO DAILY 11/08/24 11/08/24 Previous Rx's ?Medication ?Instructions ?Recorded divalproex 500 mg tablet,extended 500 mg PO BEDTIME 7 days #7 tabs 11/13/24 release 24 hr olanzapine 5 mg tablet 5 mg PO BEDTIME 7 days #7 tabs 11/13/24 Mental Status Exam Mental Status Exam Narrative: Pt is alert and oriented; behavior is cooperative and calm; dressed in casual attire; mood is described as good ; eye contact appropriate; Speech is normal rate, volume and not pressured; thought process is organized; Thought content is on discharge; denies SI/HI/AVH. Data Data Completed and Pending Completed studies during hospitalization [Text1]: 11/08/24 11/08/24 11/08/24 12:09 12:10 12:33 WBC 14.0 H RBC 5.12 Hgb 14.3 Hct 42.8 MCV 83.6 MCH 27.9 MCHC 33.4 RDW 13.2 Plt Count 271 MPV 10.1 Immature Gran % (Auto) 0.4 Neut % (Auto) 84.4 H Lymph % (Auto) 9.7 L Mck[place] % (Auto) 5.1 Eos % (Auto) 0.0 Baso % (Auto) 0.4 Lymph # (Auto) 1.4 Mckinley # (Auto) 0.7 Eos # (Auto) 0.0 Baso # (Auto) 0.1 Abs Immat Gran (auto) 0.05 H Absolute Neuts (auto) 11.8 H Absolute Nucleated RBC 0.000 Nucleated RBC % (auto) 0.0 Sodium 142 Potassium 4.0 Chloride 108 Carbon Dioxide 27 Anion Gap 11 L BUN 12 Creatinine 0.90 Estim Creat Clear Calc 107.7 Estimated GFR > 60 Random Glucose 84 Estimat Average Glucose Hemoglobin A1c % Calcium 9.0 Total Bilirubin 0.7 Direct Bilirubin AST 31 ALT 18 Alkaline Phosphatase 83 Ammonia Total Protein 7.3 Albumin 4.4 Triglycerides Cholesterol LDL Cholesterol, Calc HDL Cholesterol Urine Color Yellow Urine Appearance Clear Urine pH 6.0 Ur Specific [place] 1.020 Urine Protein Negative Urine Glucose (UA) Negative Urine Ketones Negative Urine Blood Negative Urine Nitrite Negative Ur Leukocyte Esterase Negative Urine Opiates Screen Not Detected Ur Buprenorphine Scrn Not Detected Ur Oxycodone Screen Not Detected Urine Methadone Screen Not Detected Urine Fentanyl Screen Not Detected Ur Barbiturates Screen Not Detected Valproic Acid < 12.5 L Ur Phencyclidine Scrn Not Detected Ur Amphetamines Screen Not Detected U Benzodiazepines Scrn Not Detected Urine Cocaine Screen Not Detected U Marijuana (THC) Screen POSITIVE H Ethyl Alcohol < 10 11/09/24 11/09/24 11/10/24 10:45 13:54 07:56 WBC 7.2 RBC 5.29 Hgb 14.8 Hct 44.5 MCV 84.1 MCH 28.0 MCHC 33.3 RDW 13.2 Plt Count 265 MPV 10.1 Immature Gran % (Auto) 1.0 H Neut % (Auto) 55.7 Lymph % (Auto) 32.5 Mckinley % (Auto) 8.8 Eos % (Auto) 1.3 Baso % (Auto) 0.7 Lymph # (Auto) 2.3 Mckin[place] # (Auto) 0.6 Eos # (Auto) 0.1 Baso # (Auto) 0.1 Abs Immat Gran (auto) 0.07 H Absolute Neuts (auto) 4.0 Absolute Nucleated RBC 0.000 Nucleated RBC % (auto) 0.0 Sodium 141 Potassium 4.1 Chloride 106 Carbon Dioxide 27 Anion Gap 12 BUN 17 H Creatinine 0.85 Estim Creat Clear Calc 116.4 Estimated GFR > 60 Random Glucose 90 Estimat Average Glucose 97 Hemoglobin A1c % 5.0 Calcium 9.3 Total Bilirubin 1.0 Direct Bilirubin AST 30 ALT 20 Alkaline Phosphatase 84 Ammonia Total Protein 7.4 Albumin 4.5 Triglycerides 85 Cholesterol 133 LDL Cholesterol, Calc 68 HDL Cholesterol 48 Urine Color Urine Appearance Urine pH Ur Specific [place] Urine Protein Urine Glucose (UA) Urine Ketones Urine Blood Urine Nitrite Ur Leukocyte Esterase Urine Opiates Screen Ur Buprenorphine Scrn Ur Oxycodone Screen Urine Methadone Screen Urine Fentanyl Screen Ur Barbiturates Screen Valproic Acid Ur Phencyclidine Scrn Ur Amphetamines Screen U Benzodiazepines Scrn Urine Cocaine Screen U Marijuana (THC) Screen Ethyl Alcohol 11/13/24 12:08 WBC RBC Hgb Hct MCV MCH MCHC RDW Plt Count MPV Immature Gran % (Auto) Neut % (Auto) Lymph % (Auto) Mckinley % (Auto) Eos % (Auto) Baso % (Auto) Lymph # (Auto) Mckinley # (Auto) Eos # (Auto) Baso # (Auto) Abs Immat Gran (auto) Absolute Neuts (auto) Absolute Nucleated RBC Nucleated RBC % (auto) Sodium Potassium Chloride Carbon Dioxide Anion Gap BUN Creatinine Estim Creat Clear Calc Estimated GFR Random Glucose Estimat Average Glucose Hemoglobin A1c % Calcium Total Bilirubin 0.5 Direct Bilirubin 0.1 AST 22 ALT 20 Alkaline Phosphatase 84 Ammonia 53 Total Protein 7.9 Albumin 4.7 Triglycerides Cholesterol LDL Cholesterol, Calc HDL Cholesterol Urine Color Urine Appearance Urine pH Ur Specific [place] Urine Protein Urine Glucose (UA) Urine Ketones Urine Blood Urine Nitrite Ur Leukocyte Esterase Urine Opiates Screen Ur Buprenorphine Scrn Ur Oxycodone Screen Urine Methadone Screen Urine Fentanyl Screen Ur Barbiturates Screen Valproic Acid 32.0 L Ur Phencyclidine Scrn Ur Amphetamines Screen U Benzodiazepines Scrn Urine Cocaine Screen U Marijuana (THC) Screen Ethyl Alcohol Imaging Diagnostic Imaging Impressions Foot X-Ray 11/08/24 12:20 IMPRESSION: Normal right foot. Electronically signed by: Dakota Campbell MD 11/08/2024 12:31 PM EDT DS: Summary Hospital Course Hospital Course: Patient is a 29-year-old male with history of MDD, PTSD and alcohol use disorder, who was brought into ER via ambulance due to suicidal ideation secondary to life stressors. Per crisis report, patient called [address] [facility] [place] cut himself, bleed out and fall [place] the mountain. Patient was found sitting on a bench, tearful. Patient reported he tossed the knife and was found with alcohol in his backpack. Patient reports his filed for divorce 3 months ago and he has been struggling with the idea of losing his life and family. He also is residing in the home with his until he finds alternative housing which has been stressful. history of ongoing alcohol misuse. History of inpatient psychiatric admission at [facility] in 2021. denies SI/HI/VH/AH. Patient reports auditory hallucinations telling him to harm himself at baseline. Collateral was obtained from patient's who reports patient has no history of suicide attempts but has struggled with suicidal thoughts in the past. History of superficial cutting. Does not currently have outpatient psychiatric providers but was recently seeing a medication prescriber through [facility] services via telehealth. During admission assessment, pt presents alert and oriented x3. Calm and cooperative. Patient reports feeling depressed; patient stated, currently getting a divorce. It brought up a lot of issues. I jm just shut down. I was listening to the voices in my head telling me that I was a loser for losing my . Patient reports that he started thinking about his kids and called 911 because he wants to be around for them . Patient reports he is not been taking his medications for the last 5 days. He denies history of SA. Patient reports he has been drinking heavily for the past few months; patient reports he drinks 4 shots of vodka and 4 mixed drinks daily. Patient currently denies withdrawal symptoms. Patient reports history of auditory hallucinations that call him names ; however he denies hearing them at this time. denies SI/HI/VH. Patient is requesting to be restarted on his medications and for a referral to out patient psychiatric providers. Plan: CV 15 minute safety checks Continue home medications Obtain collateral [place] protocol Encourage groups Referral to outpatient psychiatric providers Discharge planning Active on unit. social with peers. attending groups. Patient reports feeling better with the medications ; pt stated, I'm still have some depression and voices but I'm trying to be positive . denies SI/HI/VH. per nursing slept 8 hours. Start: Zyprexa 5mg PO bedtime. continues appearing well, feeling better. AH helped by olanzapine. continue current mgmt. consolidate VPA into single dose daily. feeling improved, looking forward to discharge. 3-day up wednesday. Active on unit. social with peers. attending groups. 3 day up on 11/14/24. Patient reports feeling good ; pt stated, the vocies are almost gone. I'm feeling a lot better . denies SI/HI/VH/AH. per nursing, slept 8 hours. Pt reports he plans on following up with his outpatient providers. Patient reports feeling good and ready to go home ; denies SI/HI/VH/AH. Valproic acid level 32.0 on 11/13/24. Patient reports he plans on fillowing up with his outpatient providers. Status at Discharge Cognitive/behavioral status at discharge: Patient has insight and demonstrates good judgment in terms of wanting to pursue treatment. Patient has a safety plan that includes presenting to the closest ER or calling 911 if feeling unsafe. Functional status at discharge: independent ambulation Overall status at discharge: patient is back to baseline Time Spent with Patient Time attestation: Total time managing care of this patient today __20__ minutes. Time spent: Less than 30 minutes Discharge Plan Discharge Anticipated Discharge Date/Time: 11/14/24 10:30 Patient Disposition: Home, Self-Care Discharge Diagnosis: MDD, PTSD, Alcohol use d/o Referrals: Josefina Alvarez (Therapy) [Other] - 11/17/24 11:00 am (IN OFFICE APPOINTMENT) Elvis Huddleston (Psychiatry) [Other] - 12/28/24 5:00 pm (IN OFFICE APPOINTMENT) Za Rowe NP [Nurse Practitioner] - 11/16/24 4:30 pm (11-14-24 Your follow up appt has been scheduled with Dr. Guillory on 11-16-24 @ 4:30pm) Discharge Medications: New divalproex 500 mg Tablet Extended Release 24 Hr 500 mg PO BEDTIME 7 Days Qty: 7 5RF olanzapine 5 mg Tablet 5 mg PO BEDTIME 7 Days Qty: 7 5RF Continued naltrexone 50 mg tablet 50 - 100 mg PO DAILY gabapentin 300 mg capsule 300 mg PO BID sertraline 25 mg tablet 25 mg PO DAILY Discontinued divalproex 250 mg tablet extended release 24 hr 250 mg PO Q12H Discharge Orders: Discharge Order (Routine); Ordered 11/14/24 Ordered By: Susan Fagan Diet: Regular diet Activity on Discharge: As tolerated Stand Alone Forms: Patient Portal Discharge page, Community Support Print Language: South African Care Plan Goals: Maintain mood and safe behaviors Take medications as prescribed Continue to pursue sobriety Practice coping skills Continue with outpatient providers and reach out to them as needed Health Concerns: Mood stability and behaviors Sobriety Plan of Treatment: Follow up with your PCP, psychiatric provider and other outpatient providers regarding above concerns Take medications as prescribed Assessment: Patient has insight and demonstrates good judgment in terms of wanting to pursue treatment. Patient has a safety plan that includes presenting to the closest ER or calling 911 if feeling unsafe. Discharge Date/Time: 11/14/24 10:30
--- NOTE | 2024-11-14 10:56 | PC.NURSE ---
Patient easily engaged. Reports mood is stable, denies feeling depressed, denies anxiety, denies SI/HI plan or intent. Grateful for treatment received, feels it has been helpful however ready to leave. No overt psychosis or expressed delusions. Discharge paperwork reviewed with patient, reports understanding. Follow up appointments reviewed with patient reports understanding. Discharge medications reviewed with patient reports understanding. Crisis numbers provided to patient, in addition to AA resources. All belongings taken with patient.
== END 2024-11-14 10:30 | disposition home or self-care (01) | DRG 885 ==
LOC: HO.ED 11-09 11:43 → HO.PADLT16 11-09 12:01
PROVIDERS: Emergency Medicine; Physician Assistant Medical; Admitting Provider Registered Nurse; Emergency Provider Emergency Medicine; Responsible Provider Registered Nurse; Visit Provider Psychiatry & Neurology Psychiatry
DX: F32.3 Major depressive disorder, single episode, severe with psychotic features (principal); F17.210 Nicotine dependence, cigarettes, uncomplicated; Z71.6 Tobacco abuse counseling; F10.11 Alcohol abuse, in remission; F43.10 Post-traumatic stress disorder, unspecified; Z79.899 Other long term (current) drug therapy
CPT/HCPCS: 36415; 73630; 80053; 80061; 80076; 80164; 80307; 81003; 82140; 83036; 85025; 93005; 99285; S9485

== ENCOUNTER → 2024-11-08 12:20 | Outpatient (BNV) | payer SELFPAY | PROVIDERS: Emergency Provider Emergency Medicine; Visit Provider Radiology Diagnostic Radiology | DX: M79.671 Pain in right foot (principal) | CPT/HCPCS: 73630 ==

== ENCOUNTER → 2024-11-08 14:00 | Outpatient (BNV) | payer SELFPAY | PROVIDERS: Emergency Provider Emergency Medicine; Visit Provider Internal Medicine Cardiovascular Disease | DX: Z13.6 Encounter for screening for cardiovascular disorders (principal) | CPT/HCPCS: 93010 ==

== ENCOUNTER → 2024-11-09 11:07 | Outpatient (BNV) | payer OTHER, SELFPAY | PROVIDERS: Admitting Provider Registered Nurse; Emergency Provider Emergency Medicine; Responsible Provider Registered Nurse; Visit Provider Registered Nurse | DX: F32.3 Major depressive disorder, single episode, severe with psychotic features (principal); F43.11 Post-traumatic stress disorder, acute; F10.90 Alcohol use, unspecified, uncomplicated | CPT/HCPCS: 90792; 99231; 99232 ==